=== PATIENT | male | born 1975 | race Caucasian/White ===

== ENCOUNTER 2017-11-24 15:16 | Emergency (ER) | payer MEDICAID, OTHER ==
[2017-11-24 15:23] VITALS: RESP 18; TEMP 98.3; O2SAT 99
--- NOTE | 2017-11-24 15:42 | ED PDOC ---
Burn Injury/Smoke Inhalation Time Seen by Provider: 11/24/17 15:22 Chief Complaint (Nursing): Burn Chief Complaint (Provider): Burn History Per: Patient History/Exam Limitations: no limitations Injury Occurred (Timing): Today @ (10:00) Type Of Burn (Context): Hot Liquid (oil) Additional Complaint(s): Patient is a 42 y/o male who presents to the ED for evaluation of a burn to the left foot, onset earlier today at 10:00. Patient states he works as a cook and he went to change the oil in the deep fryer and split some on his foot. He states that he took 4000mg of Tylenol between 10:00 and 12:00 with adequate relief. Patient confirms that his tetanus is up to date. He denies any other injury or trauma as well as any nausea, abdominal pain, or vomiting. He has no history of liver disease. PMD: None provided Past Medical History Reviewed: Historical Data, Nursing Documentation, Vital Signs Vital Signs: Last Vital Signs Temp 98.3 F 11/24/17 15:19 Pulse 94 H 11/24/17 15:19 Resp 18 11/24/17 15:19 BP 131/66 11/24/17 15:19 Pulse Ox 99 11/24/17 15:19 - Medical History PMH: No Chronic Diseases - Surgical History Other surgeries: Jaw fracture procedure - Family History Family History: States: Unknown Family Hx - Social History Current smoker - smoking cessation education provided: Yes SMOKER/PACKS PER DAY:: 1 (10 cig /day) Alcohol: Social Drugs: Denies - Immunization History Hx Tetanus Toxoid Vaccination: Yes (UTD) - Home Medications Home Medications: Ambulatory Orders Medication Instructions Recorded Ibuprofen [Motrin Tab] 800 mg PO Q8 PRN #21 tab 11/24/17 Silver Sulfadiazine 1% [Silver 1 appl TP BID #1 bottle 11/24/17 Sulfadiazine] - Allergies Allergies/Adverse Reactions: Allergies Allergy/AdvReac Type Severity Reaction Status Date / Time No Known Allergies Allergy Verified 11/24/17 15:19 Review of Systems ROS Statement: Except As Marked, All Systems Reviewed And Found Negative Constitutional: Negative for: Fever Gastrointestinal: Negative for: Nausea, Vomiting, Abdominal Pain Musculoskeletal: Positive for: Foot Pain (Left foot) Physical Exam - Reviewed Nursing Documentation Reviewed: Yes Vital Signs Reviewed: Yes - Physical Exam Comments: GENERAL APPEARANCE: Patient is awake, alert, and oriented x3. Resting comfortably. Ambulating in ED with a steady, unassisted gait. EYES: (-) conjunctival pallor, (-) scleral icterus. ENMT: Mucous membranes moist. Airway patent, (-) stridor. NECK: Supple, FROM CHEST AND RESPIRATORY: (-) rales, (-) rhonchi, (-) wheezes; breath sounds equal bilaterally. Speaking in full sentences, respirations even and nonlabored. HEART AND CARDIOVASCULAR: (-) irregularity; (-) murmur, (-) gallop. ABDOMEN: Soft (-) tenderness (-) guarding (-) distention (-) CVA tenderness (-) rebound EXTREMITIES: The dorsum of left mid foot has 3cm x 2cm intact blister. (+) mild surrounding erythema, (+) tenderness, (-) break in skin, full ROM of foot and ankle, (-) calf tenderness, sensation intact throughout. 2+ pulses. NEURO AND PSYCH: Mental status as above; (-) focal findings. - Laboratory Results Result Diagrams: 11/24/17 15:42 11/24/17 15:42 - ECG O2 Sat by Pulse Oximetry: 99 (RA) Pulse Ox Interpretation: Normal Medical Decision Making Medical Decision Making: Time: 15:30 Initial Impression: Secondary degree burn of foot, Possible Tylenol overdose Initial Plan: --CMP --Acetominophen level --CBC with differential --Silvadene Dressing --Consult to poison control --Patient declined pain medication in ED. 1620 Labs reviewed and grossly unremarkable. 1630 ED RN discussed case with poison control food service sales representatives, Gloria, who states no further intervention is required in regards to Tylenol consumption. On re-evaluation, patient reports improvement of symptoms, denies any pain or discomfort at this time. On exam, patient remains AAOx3, in no acute distress. On exam, neck is supple, lungs CTA, cardiac RRR, neuro exam shows no focal findings. VSS, stable for discharge. Educated on burn care. Diagnostic results d/w the patient in great detail. Dx of second degree burn of foot d/w the patient. Based on history, exam and diagnostic results plan will be for discharge and outpatient follow up. Advised to follow up with clinic/burn center in 1-2 days without fail. Advised to take medication as prescribed. Return to the emergency room at any time for any new or worsening symptoms. Patient states he fully agrees with and understands discharge instructions. States that he agrees with the plan and disposition. Verbalized and repeated discharge instructions and plan. I have given the patient opportunity to ask any additional questions. Scribe Attestation: Documented by Zechariah Ortiz, acting as a scribe for Veronica Delacruz PA-C Provider Scribe Attestation: All medical record entries made by the Scribe were at my direction and personally dictated by me. I have reviewed the chart and agree that the record accurately reflects my personal performance of the history, physical exam, medical decision making, and the department course for this patient. I have also personally directed, reviewed, and agree with the discharge instructions and disposition. Disposition - Clinical Impression Clinical Impression: Second degree burn of foot, Acute foot pain - Patient ED Disposition Is Patient to be Admitted: No Counseled Patient/Family Regarding: Studies Performed, Diagnosis, Need For Followup, Rx Given - Disposition Referrals: [facility] [Outside] Disposition: Routine/Home Disposition Time: 16:40 Condition: STABLE Additional Instructions: ALSO FOLLOW UP AT: [facility] Located in: [facility] Address: [address] [place] [address] RETURN TO ED WITH ANY NEW OR WORSENING SYMPTOMS. KEEP WOUND CLEAN AND DRY. LEAVE BLISTER INTACT. APPLY SILVADENE DIRECTED. AVOID TYLENOL USE FOR 24 HOURS AND THEN USE IN ADDITION TO IBUPROFEN NEEDED FOR PAIN. Prescriptions: Ibuprofen [Motrin Tab] 800 mg PO Q8 PRN #21 tab PRN Reason: Pain, Severe (8-10) Silver Sulfadiazine 1% [Silver Sulfadiazine] 1 appl TP BID #1 bottle Instructions: Skin Lam, Wound Care Forms: [employer] (Telugu) Print Language: [place] Results - Lab Results Lab Results: 11/24/17 11/24/17 11/24/17 15:42 15:42 15:42 WBC 11.5 H RBC 5.05 Hgb 15.5 Hct 45.8 MCV 90.8 MCH 30.8 MCHC 33.9 RDW 13.2 Plt Count 200 MPV 9.3 Neut % (Auto) 68.6 Lymph % (Auto) 21.8 Ashe % (Auto) 6.2 Eos % (Auto) 2.7 Baso % (Auto) 0.7 Neut # (Auto) 7.9 H Lymph # (Auto) 2.5 Ashe # (Auto) 0.7 Eos # (Auto) 0.3 Baso # (Auto) 0.1 Sodium 142 Potassium 4.1 Chloride 108 H Carbon Dioxide 22 Anion Gap 16 BUN 22 H Creatinine 0.8 Est GFR ( Amer) > 60 Est GFR (Non-Af Amer) > 60 Random Glucose 89 Calcium 9.1 Total Bilirubin 0.6 AST 25 ALT 31 Alkaline Phosphatase 72 Total Protein 7.7 Albumin 4.0 Globulin 3.7 Albumin/Globulin Ratio 1.1 Acetaminophen < 10.0 L
[2017-11-24 15:48] LABS: BASO # 0.1 K/uL (0.0-0.2); BASO % 0.7 % (0.0-2.0); EOS # 0.3 K/uL (0.0-0.7); EOS % 2.7 % (0.0-4.0); HEMOGLOBIN 15.5 g/dL (12.0-18.0); LYMPH # 2.5 K/uL (1.0-4.3); LYMPH % 21.8 % (20.0-40.0); MEAN CELL VOLUME 90.8 fl (80.0-94.0); MEAN CORPUSCULAR HEMOGLOBIN 30.8 pg (27.0-31.0); MEAN CORPUSCULAR HGB CONC 33.9 g/dL (33.0-37.0); MEAN PLATELET VOLUME 9.3 fl (7.2-11.7); MONO # 0.7 K/uL (0.0-0.8); MONO % 6.2 % (0.0-10.0); NEUT # 7.9 K/uL (1.8-7.0); NEUT % 68.6 % (50.0-75.0); NRBC % 0.1 % (0.0-0.0); RBC 5.05 Mil/uL (4.40-5.90); RED CELL DISTRIBUTION WIDTH 13.2 % (11.5-14.5); WHITE BLOOD COUNT 11.5 K/uL (4.8-10.8)
[2017-11-24 15:59] LABS: ALB/GLOB RATIO 1.1 (1.0-2.1); ALT/SGPT 31 U/L (21-72); AST/SGOT 25 U/L (17-59); BLOOD UREA NITROGEN 22 mg/dl (9-20); CALCIUM 9.1 mg/dL (8.4-10.2); GFR AFRICAN-AMERICAN > 60; GFR NON-AFRICAN AMERICAN > 60
[2017-11-24] MEDS ORDERED: Silver Sulfadiazine 1% Cream (20 gm) TOP ONE (16:00)
[2017-11-24] MEDS ORDERED: Silver Sulfadiazine 1% CREAM (50 gm) ONE (16:21)
[2017-11-24 16:49] VITALS: BP 148/89; PULSE 87
== END 2017-11-24 16:51 | disposition home or self-care (01) ==
LOC: H.ER 15:16
DX: T25.222A Burn of second degree of left foot, initial encounter (principal); Y99.0 Civilian activity done for income or pay